=== PATIENT | male | born 1930 | race Hispanic/Latino ===

== ENCOUNTER 2017-06-28 08:32 | Inpatient (IN) | payer OTHER, MEDICARE ==
[~2017-06-28] VITALS: Ht 172.7 cm; Wt 86.0 kg
[~2017-06-28 08:32] MED LIST: ADV250 IH; AMLO5TAB2 PO; ASPI-1197 PO; CARV6.25 PO; IPRA4AER IH; LOSA50TA37 PO; ROSU20TA PO; TAMS0.4C32 PO; [UNRECOGNIZED DRUG - OTHER] TP
[2017-06-28] MEDS ORDERED: IPRATROPIUM/ALBUTEROL SULFATE 3 ML SOLUTION IH ONE ×2 (08:44→09:36)
[2017-06-28 08:57] LABS: BASOPHILS % (AUTO) 0.7 % (0.0-5.0); EOSINOPHILS % (AUTO) 2.9 % (0.0-8.0); HEMATOCRIT 38.9 % (42-54); LYMPHOCYTES % (AUTO) 16.8 % (21.0-51.0); MEAN CORPUSCULAR HEMOGLOBIN 29.5 pg (27.0-33.0); MEAN CORPUSCULAR HGB CONC 33.9 g/dL (32.0-36.0); MEAN CORPUSCULAR VOLUME 86.9 fL (79-99); MONOCYTES % (AUTO) 8.6 % (3.0-13.0); PLATELET COUNT (AUTO) 236 K/uL (130-400); RED BLOOD CELL COUNT(AUTO) 4.48 MIL/uL (4.50-6.20); RED CELL DISTRIBUTION WIDTH 14.4 % (11.0-15.5); WHITE BLOOD COUNT (AUTO) 7.9 K/uL (4.8-10.8)
[2017-06-28 09:08] LABS: INR 1.05 (0.85-1.15); PARTIAL THROMBOPLASTIN TIME 29.4 SEC (26.3-35.5)
[2017-06-28 09:19] LABS: CREATININE 1.1 mg/dL (0.5-1.5); POTASSIUM 4.2 mmol/L (3.5-5.1)
[2017-06-28 09:45] LABS: ALBUMIN 3.1 g/dL (3.5-5.0); BILIRUBIN,TOTAL 0.4 mg/dL (0.2-1.0); CREATINE KINASE MB 1.1 ng/mL (0.5-3.6); TOTAL PROTEIN, SERUM 7.6 g/dL (6.0-8.3)
[2017-06-28] MEDS ORDERED: METHYLPREDNISOLONE SOD SUCC 125MG/2ML VIAL ONE (10:12)
[2017-06-28 10:16] LABS: APPEARANCE,URINE Clear (CLEAR); BILIRUBIN,URINE Negative (NEGATIVE); COLOR,URINE Yellow (YELLOW); GLUCOSE, URINE (UA) Negative (NEGATIVE); KETONES,URINE Negative (NEGATIVE); LEUKOCYTE ESTERASE ,URINE Negative (NEGATIVE); NITRATE,URINE Negative (NEGATIVE); OCCULT BLOOD,URINE Negative (NEGATIVE); PH,URINE 6.5 (5.0-8.0); PROTEIN,URINE Negative (NEGATIVE)
[2017-06-28] MEDS ORDERED: ALBUTEROL SULFATE 0.083% 2.5 MG/3 ML INH IH ONE (10:40)
[2017-06-28] MEDS ORDERED: LEVOFLOXACIN 500 MG/D5W 100 ML 100 ML ONE (12:41)
[2017-06-28 13:26] VITALS: BP 142/89
[2017-06-28] MEDS ORDERED: SODIUM CHLORIDE 0.9% 10 ML VIAL IVP PRN (13:45)
[2017-06-28] MEDS ORDERED: LEVOFLOXACIN 500 MG/D5W 100 ML 100 ML IV SCH (14:00)
[2017-06-28] MEDS ORDERED: FURO40TA5 PO (14:31)
[2017-06-28] MEDS ORDERED: NITR.4 SL (14:31)
[2017-06-28] MEDS ORDERED: CARV12.511 PO (14:31)
[2017-06-28] MEDS ORDERED: LEVO0.5P2 MC (14:31)
[2017-06-28] MEDS ORDERED: TAMS0.4C32 PO (14:31)
[2017-06-28] MEDS ORDERED: METF500T7 PO (14:31)
[2017-06-28] MEDS ORDERED: ROSU20TA38 PO (14:40)
[2017-06-28] MEDS ORDERED: ADV250 IH (14:40)
[2017-06-28] MEDS ORDERED: ALBU8.5H8 IH (14:40)
[2017-06-28] MEDS: IPRATROPIUM/ALBUTEROL SULFATE 3 ML SOLUTION IH SCH ×3 (14:40→21:54)
[2017-06-28] MEDS: PNEUMOCOCCAL VACCINE POLYVALENT 0.5 ML/VIAL [PPV] IM SCH (16:15)
[2017-06-28 17:19] VITALS: BP 139/86
[2017-06-28] MEDS: METHYLPREDNISOLONE SOD SUCC 125MG/2ML VIAL IVP SCH (18:01)
[2017-06-28 19:00] VITALS: BP 134/72
[2017-06-28] MEDS ORDERED: ONDANSETRON HCL 4 MG/2 ML VIAL IV PRN (23:45)
[2017-06-28] MEDS ORDERED: ACETAMINOPHEN 325 MG TAB PO PRN (23:45)
[2017-06-28] MEDS ORDERED: HYDRALAZINE HCL 20 MG/ML VIAL IV PRN (23:45)
[2017-06-29] VITALS: BP 149/84
[2017-06-29] MEDS: METHYLPREDNISOLONE SOD SUCC 125MG/2ML VIAL IVP SCH ×4 (00:08→22:32)
[2017-06-29] MEDS: IPRATROPIUM/ALBUTEROL SULFATE 3 ML SOLUTION IH SCH ×6 (01:47→22:02)
[2017-06-29 03:51] LABS: BASOPHILS % (AUTO) 0.1 % (0.0-5.0); HEMATOCRIT 37.5 % (42-54); LYMPHOCYTES % (AUTO) 4.9 % (21.0-51.0); MEAN CORPUSCULAR HEMOGLOBIN 29.4 pg (27.0-33.0); MEAN CORPUSCULAR VOLUME 86.4 fL (79-99); MONOCYTES % (AUTO) 1.5 % (3.0-13.0); NEUTROPHILS % (AUTO) 93.5 % (40.0-77.0); NUCLEATED RED BLOOD CELLS 0.1 % (0.0-0.19); PLATELET COUNT (AUTO) 218 K/uL (130-400); RED BLOOD CELL COUNT(AUTO) 4.34 MIL/uL (4.50-6.20); RED CELL DISTRIBUTION WIDTH 13.6 % (11.0-15.5)
[2017-06-29 04:00] VITALS: BP 158/79
[2017-06-29 04:18] LABS: CREATINE KINASE MB 1.4 ng/mL (0.5-3.6); CREATININE 1.2 mg/dL (0.5-1.5); POTASSIUM 4.1 mmol/L (3.5-5.1); TROPONIN I 0.13 ng/mL (0.00-0.06)
[2017-06-29] MEDS: INSULIN LISPRO 100 UNIT/ML 3ML SQ SCH ×4 (07:18→21:00)
[2017-06-29 08:00] VITALS: BP 154/66
[2017-06-29] MEDS: FAMOTIDINE 20MG TAB 20 MG TAB PO SCH ×2 (08:55→22:32)
[2017-06-29 11:00] VITALS: BP 150/72
[2017-06-29] MEDS: LEVOFLOXACIN 500 MG/D5W 100 ML 100 ML IV SCH (11:31)
[2017-06-29 16:46] VITALS: BP 157/64
[2017-06-29 19:52] VITALS: BP 148/77
[2017-06-30] VITALS: BP 160/81
[2017-06-30] MEDS: IPRATROPIUM/ALBUTEROL SULFATE 3 ML SOLUTION IH SCH ×2 (01:30→06:20)
[2017-06-30 03:48] VITALS: BP 143/73
[2017-06-30] MEDS: METHYLPREDNISOLONE SOD SUCC 125MG/2ML VIAL IVP SCH ×2 (05:22→12:52)
[2017-06-30 07:00] VITALS: BP 140/71
[2017-06-30] MEDS: INSULIN LISPRO 100 UNIT/ML 3ML SQ SCH ×2 (07:19→12:49)
[2017-06-30] MEDS ORDERED: LEVO500T2 PO (08:17)
[2017-06-30] MEDS ORDERED: PRED20TA3 PO (08:17)
[2017-06-30] MEDS: FAMOTIDINE 20MG TAB 20 MG TAB PO SCH (09:17)
[2017-06-30] MEDS: PNEUMOCOCCAL VACCINE POLYVALENT 0.5 ML/VIAL [PPV] IM SCH (09:19)
[2017-06-30] MEDS: LEVOFLOXACIN 500 MG/D5W 100 ML 100 ML IV SCH (10:26)
[2017-06-30 12:00] VITALS: BP 150/70
== END 2017-06-30 14:05 | disposition left against medical advice (07) | DRG 192 ==
LOC: EDH 08:32 → EDHIP 11:10 → 3AH 12:46
PROVIDERS: ADMIT Family Medicine; ATTEND Family Medicine
PROC: 3E0234Z Introduction of Serum, Toxoid and Vaccine into Muscle, Percutaneous Approach (ICD-10-PCS; principal; 2017-06-28)
DX: J44.1 Chronic obstructive pulmonary disease with (acute) exacerbation (principal); E11.9 Type 2 diabetes mellitus without complications; J45.909 Unspecified asthma, uncomplicated; E78.5 Hyperlipidemia, unspecified; I10 Essential (primary) hypertension; I25.10 Atherosclerotic heart disease of native coronary artery without angina pectoris; Z87.891 Personal history of nicotine dependence; Z88.0 Allergy status to penicillin; Z23 Encounter for immunization
CPT/HCPCS: 36415; 71045; 80048; 80053; 81003; 82550; 82553; 82948; 83605; 83874; 83880; 84484; 85025; 85610; 85730; 87040; 87088; 87804; 90732; 93005; 94640; 94664; 94760; G0009; J1956; J2930